=== PATIENT | female | born 2000 | race Caucasian/White ===

== ENCOUNTER 2024-05-03 17:21 | Emergency (ER) | payer SELFPAY ==
[2024-05-03] MEDS ORDERED: Fluconazole 100 MG TAB PO SCH (18:00)
[2024-05-03 18:26] LABS: Bilirubin Neg (Negative); Blood, Urine Negative (Negative); Clarity Clear (Clear); Glucose, Urine (Dipstick) Normal (Negative); Ketone, Urine Negative (Negative); Leukocyte Negative (Negative); Nitrite Negative (Negative); Protein, Urine (Dipstick) Negative (Neg-Trace); Urobilinogen Normal mg/dL (Less than 2)
[2024-05-03 18:48] LABS: Pregnancy Test - Urine (BHCG) Negative (Negative)
[2024-05-03 18:49] LABS: Pregu Control Background? CLEAR/WHITE (CLR/WHITE); Pregu Control Bar Appear? YES (CONTROL BAR)
[2024-05-03 18:50] LABS: Bacteria/HPF 2+ HPF (None Seen); CAUTI Indications for Culture Pelvic or flank pain; RBC/HPF None Seen HPF (0-3); Squamous Epithelial 0-3 HPF (0-3); Urine Culture Reflex No No; WBC/HPF 0-3 HPF (0-3)
[2024-05-03 23:23] LABS: GC by PCR, EndoCx Swab Not Detected (NotDetected)
== END 2024-05-03 20:03 | disposition home or self-care (01) ==
LOC: CSHERS 17:21
DX: N76.0 Acute vaginitis (principal); B96.89 Other specified bacterial agents as the cause of diseases classified elsewhere
CPT/HCPCS: 36416; 81001; 81025; 87480; 87510; 87591; 87660; 99283